=== PATIENT | male | born 1995 | race Caucasian/White ===

== ENCOUNTER 2018-01-04 10:55 | Day surgery (SDC) | payer OTHER, SELFPAY ==
[2017-12-28 11:57] VITALS: BMI 33.2
--- NOTE | 2018-01-04 | PATH_ITS ---
[facility] Accession Number: [id number] . 01 Material submitted: . PILONIDAL CYST . 02 Diagnosis: Pilonidal Cyst, Excision: Skin with features of pilonidal cyst. Negative for dysplasia or malignancy. MRV/01/06/2018 . 02 Electronically signed: . Cristal Calle MD, Pathologist NPI- [id number] . 01 Gross description: . Received in formalin, labeled pilonidal cyst, is an unoriented ellipse of ovalle-pink smooth shiny skin with underlying tissue (7.7 x 4.0 x 3.5 cm) containing a partially perforated linear pucker (length-5.0 cm). The underlying tissue is fatty and cystic containing ovalle-pink soft material. The resection margin is inked black. Section code: (A1-A2, A3) two full cross-sections. ([id number]) /MRV . 02 Pathologist provided ICD-10: L05.01 . 02 CPT . 716591 Performed at: 01 [facility] [address], [place], [place] [id number] MD Hi Lucero MD Phone: [phone] Performed at: 02 [facility] [address] [place], [place] [id number] MD Sheela Hernandez MD Phone: [phone]
[2018-01-04 11:13] VITALS: BP 136/94; PULSE 81; RESP 16; TEMP 36.8; O2SAT 97; BMI 33.2
[2018-01-04] MEDS: LACTATED RINGERS 1,000 ML 100 ML IV (11:35)
--- NOTE | 2018-01-04 12:05 | PM.PREOP ---
Pre-operative Note Interval Note Pre-op Check: Yes History & Physical Reviewed by Physician and Yes Exam Performed Changes: No H&P completed within 30 days and has changed as indicated here:: Patient seen and examined in the preoperative area. His history and physical examination as documented December 09, 2017 has not changed. H&P is on the chart. Proceed with pilonidal cyst excision today as planned.
[2018-01-04] MEDS: CEFAZOLIN 2 GM/100 ML FROZ.PIGGY IV (12:20)
--- NOTE | 2018-01-04 12:53 | SUR.OPER ---
Prone on padded OR bed, head in foam head support, gel chest rolls, gel pad under knees, pillow under lower legs, toes free of pressure, arms secured on padded arm boards at <90 degrees abduction. Safety belt at thigh.
[2018-01-04] MEDS: BUPIVACAINE 0.5% (PF) VIAL 30 ML INJ (13:09)
[2018-01-04] MEDS: LIDOCAINE 1% W/EPI INJ 20 ML INJ (13:10)
[2018-01-04] MEDS: LACTATED RINGERS 1,000 ML 42 ML IV (13:19)
[2018-01-04 13:33] VITALS: BP 126/72; PULSE 113; RESP 10; TEMP 36.9; O2SAT 94
[2018-01-04 13:38] VITALS: BP 123/64; PULSE 121; RESP 20; TEMP 36.6; O2SAT 94
[2018-01-04 13:43] VITALS: BP 126/66; PULSE 104; RESP 14; TEMP 36.8; O2SAT 98
--- NOTE | 2018-01-04 13:46 | P.OP_ITS ---
Operative Date/Time/Diagnoses Date of procedure: 01/04/18 Time of procedure: 13:38 Pre-op diagnosis: Recurrent pilonidal cyst Post-op diagnosis: same Procedure & Clinicians Procedure: Excision of recurrent pilonidal cyst with total dimensions measuring 3 x 9 x 4 cm with simple primary closure Same procedure as scheduled: Yes Indications: 22-year-old male who underwent previous procedure for pilonidal cyst and presents with ongoing sinus tracts and drainage. Area has been painful as well. Excision of the cyst was recommended. Surgeon: Baldev Morelos Click Yes if Unassisted: Yes Anesthesia Type: General Operative Notes Findings: 1. Multiple sinus tracts within moderate-sized pilonidal cyst 2. Chronic hypertrophic granulation tissue within sinus tracts of the cyst 3. No abscess or cellulitis Closure Type: primary Specimen(s): other (pilonidal cyst) Implants & Drains: none Estimated Blood Loss (mL): 10 Blood products transfused: none Procedure in detail: After obtaining informed consent patient was brought to the operating room left supine on the gurney. After satisfactory induction of anesthesia he was placed in prone ryanne-knife position and all pressure points were padded appropriately. Buttocks were taped apart and the area was prepped and draped in usual sterile fashion. SCOAP time out was performed per standard protocol. Elliptical incision was designed encompassing all of the sinus tracts and involved tissue constituting the pilonidal cyst. Area was then infiltrated with a 1: 1 mixture 1% lidocaine with 1:100,000 epinephrine and 0.5 % plain Marcaine for postoperative analgesia. Skin incision was created with 15 scalpel blade followed by the Bovie for hemostasis. Bovie was used to carry the dissection down through the subcutaneous tissue to the fascia overlying the coccyx. Great care was taken to avoid injury to the underlying gluteus muscles and sphincter muscles at the superior aspect of the anal region. Entire cyst and surrounding tissue was then excised along the fascial plane and sent for permanent section. Hemostasis was achieved with the Bovie. Wound was irrigated with copious amounts of sterile saline solution. Wound was hemostatic. Tape was then released to reapproximate the skin. Subcutaneous and deep tissue were then reapproximated in a very meticulous fashion using interrupted 2 0 Vicryl suture. Skin was closed in an interrupted fashion using vertical mattress interrupted 2 0 nylon suture. Sterile dressing was applied held in place by mesh undergarment. Patient was returned to supine position on the gurney and anesthesia was reversed. He was extubated in the operating room and taken to recovery in stable condition. Complications: none Condition: stable Disposition: PACU Plan for aftercare: 1. Discharged home 2. Follow up in surgery Clinic next week
[2018-01-04] MEDS: OXYCODONE/ACETAMINOPHEN 5/325 TABLET 1 TAB PO (13:55)
[2018-01-04 14:00] VITALS: BP 152/74; PULSE 100; RESP 14; TEMP 36.4; O2SAT 99
[2018-01-04 14:21] VITALS: BP 131/85; PULSE 92; RESP 16; TEMP 36.8; O2SAT 99
== END 2018-01-04 14:37 | disposition home or self-care (01) ==
PROVIDERS: PCP Student in an Organized Health Care Education/Training Program; Visit Provider Surgery
PROC: (CPT 11771; principal; 2018-01-04 12:30)
DX: L05.01 Pilonidal cyst with abscess (principal)
CPT/HCPCS: 11771; 88304; J0690; J1100; J2250; J2405; J2704; J3010